=== PATIENT | male | born 1960 | race Caucasian/White ===

== ENCOUNTER 2019-10-15 16:39 | Emergency (ER) | payer BC, OTHER ==
[2019-10-15] MEDS ORDERED: oxyCODONE 5 MG Tab PO ONE (17:54)
--- NOTE | 2019-10-15 17:54 | EDM.PDOC ---
ED HPI GENERAL MEDICAL PROBLEM - General Chief Complaint: Back Pain or Injury Stated Complaint: PAIN RT SHOULDER/LOW BACK PAIN Time Seen by Provider: 10/15/19 17:15 - History of Present Illness INITIAL COMMENTS - FREE TEXT/NARRATIVE: This is a 59-year-old male presents with concerns of right-sided back and shoulder pain. 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 He had a fusion in his back for this. He reports that for the last week or so he is had increasing pain in his cervical spine, this radiates into his right shoulder and arm. He is noticed no weakness. He saw PCP a week ago, they prescribed him a steroid and some Flexeril, he did minimal relief with this. He called the PCPs office this evening to arrange follow-up and they suggested he go to the emergency room. He is not having any fevers or chills. He has no lower extremity weakness, bowel or bladder incontinence. No fevers. No IV drug use. No significant trauma preceding the symptoms. He is wondering about getting an MRI performed. Upper Back Pain Score (Numeric/FACES): 10 - Related Data Allergies Allergy/AdvReac Type Severity Reaction Status Date / Time Penicillins Allergy Fainting Verified 10/15/19 17:15 Home Meds: Home Meds Albuterol Sulfate [Albuterol Sulfate Hfa] 1 puff IH ASDIRECTED 10/15/19 [History] Losartan [Cozaar] 25 mg PO DAILY 10/15/19 [History] Omeprazole 40 mg PO ASDIRECTED 10/15/19 [History] Tamsulosin [Tamsulosin 24 Hr] 0.4 mg PO BID 10/15/19 [History] atorvaSTATin [Lipitor] 20 mg PO BEDTIME 10/15/19 [History] methylPREDNISolone [Methylprednisolone] 4 mg PO TID 10/15/19 [History] oxyCODONE 5 mg PO Q6H PRN #5 tab 10/15/19 [Rx] tiZANidine [Zanaflex] 2 mg PO DAILY 10/15/19 [History] Past Medical History HEENT History: Reports: Impaired Vision Cardiovascular History: Reports: High Cholesterol, Hypertension Respiratory History: Reports: Other (See Below) Gastrointestinal History: Reports: GERD Genitourinary History: Reports: Prostate Disorder Musculoskeletal History: Reports: Back Pain, Chronic Neurological History: Reports: Head Trauma, Other (See Below) Endocrine/Metabolic History: Reports: Diabetes, Type II, Obesity/BMI 30+ - Past Surgical History Head Surgeries/Procedures: Reports: None HEENT Surgical History: Reports: Adenoidectomy, Tonsillectomy Cardiovascular Surgical History: Reports: None Respiratory Surgical History: Reports: None GI Surgical History: Reports: None Endocrine Surgical History: Reports: None Neurological Surgical History: Reports: Spinal Fusion Musculoskeletal Surgical History: Reports: Other (See Below) Other Musculoskeletal Surgeries/Procedures:: knee surgery, Social & Family History - Tobacco Use Smoking Status *Q: Former Smoker Used Tobacco, but Quit: Yes Month/Year Tobacco Last Used: 2014 Second Hand Smoke Exposure: No - Caffeine Use Caffeine Use: Reports: Coffee - Recreational Drug Use Recreational Drug Use: No ED ROS GENERAL - Review of Systems Review Of Systems: See Below Constitutional: Reports: No Symptoms HEENT: Reports: No Symptoms Respiratory: Reports: No Symptoms Cardiovascular: Reports: No Symptoms Endocrine: Reports: No Symptoms GI/Abdominal: Reports: No Symptoms : Reports: No Symptoms Musculoskeletal: Reports: Back Pain Skin: Reports: No Symptoms Neurological: Reports: No Symptoms Psychiatric: Reports: No Symptoms Hematologic/Lymphatic: Reports: No Symptoms Immunologic: Reports: No Symptoms ED EXAM, UPPER BACK/NECK PAIN - Physical Exam Exam: See Below Exam Limited By: No Limitations General Appearance: Alert, Mild Distress Ears Exam: Normal External Exam Nose Exam: Normal Inspection Throat/Mouth Exam: Normal Inspection Head Exam: Atraumatic, Normocephalic Neck Exam: Tenderness (mild right sided neck and trapezious tenderness ) Cardiovascular/Respiratory: Regular Rate, Rhythm GI/Abdominal: Soft, Non-Tender Back Exam: Normal Inspection Extremities: Normal Inspection Neurologic: adobe layer helper II-XII nml As Tested, No Motor/Sensory Deficits, Normal Mood/Affect (Strategic Debriefing Specialist strength, flexion extension at the elbow, shoulder shrug is symmetric in the upper extremities bilaterally) Psychiatric: Normal Affect, Normal Mood Skin Exam: Normal Color, Warm/Dry Course - Vital Signs Last Recorded V/S: Last Vital Signs Temp 35.6 C L 10/15/19 17:20 Pulse 82 10/15/19 17:20 Resp 16 10/15/19 17:20 BP 135/96 H 10/15/19 17:20 Pulse Ox 98 10/15/19 17:20 - Orders/Labs/Meds Meds: Medications Discontinued Medications Generic Name Dose Route Start Last Admin Trade Name Dicksonq PRN Reason Stop Dose Admin Oxycodone HCl 5 mg 10/15/19 17:54 10/15/19 17:59 Oxycodone PO 10/15/19 17:55 5 mg ONETIME ONE Administration - Re-Assessments/Exams Free Text/Narrative Re-Assessment/Exam: 59-year-old male presents with concerns of right-sided cervical neck pain and arm pain. He has history of degenerative disease in the cervical spine. On exam he is neuro intact. He reports chronic pain in the neck, but quite a bit worse this last week. It is unclear what is driving this acute exacerbation of his chronic pain. However he has no motor deficit, signs of SEA, or other emergent pathology driving this. I think he is safe for further outpatient management, I prescribed him a short course of oxycodone. There seems to be a lot of muscle spasm driving this but he is already been prescribed Flexeril. He is going to follow-up promptly with his PCP tomorrow. They can consider MR managing and PT at this time. Discussed return precautions. Discharged. 10/15/19 18:35 Departure - Departure Time of Disposition: 17:53 Disposition: Home, Self-Care 01 Clinical Impression: Cervical pain (neck) - Discharge Information Prescriptions: oxyCODONE 5 mg PO Q6H PRN #5 tab PRN Reason: Pain Instructions: Radicular Pain Referrals: Olga Wilson MD [Primary Care Provider] - Forms: ED Department Discharge Additional Instructions: We did not findings that necessitate an MRI on your exam today, but you should follow up closely with your primary doctor as discussed. For pain, please continue to use tylenol. Use the prescription medication in addition to this as needed. If you develop weakness in the arm please promptly see a physician Thank you for allowing us to care for you today. Sepsis Event Note (ED) - Evaluation Sepsis Screening Result: No Definite Risk - Focused Exam Vital Signs: Vital Signs Temp Pulse Resp BP Pulse Ox 10/15/19 17:20 35.6 C L 82 16 135/96 H 98 10/15/19 17:05 35.6 C L 82 16 135/96 H 98
== END 2019-10-15 18:07 | disposition home or self-care (01) ==
LOC: JP.ED 16:39
DX: M54.2 Cervicalgia (principal); M25.511 Pain in right shoulder; M54.6 Pain in thoracic spine; I10 Essential (primary) hypertension; E78.00 Pure hypercholesterolemia, unspecified; E11.9 Type 2 diabetes mellitus without complications; E66.9 Obesity, unspecified; Z88.0 Allergy status to penicillin; Z79.899 Other long term (current) drug therapy; Z87.891 Personal history of nicotine dependence; Z68.32 Body mass index [BMI] 32.0-32.9, adult
CPT/HCPCS: 99283; A9270

== ENCOUNTER 2022-12-06 16:32 | Emergency (ER) | payer BC ==
[2022-12-06] MEDS ORDERED: Sodium Chloride 0.9% 10 ML Syringe FLUSH PRN (17:01)
[2022-12-06 17:13] LABS: BASOPHILS ABSOLUTE AUTO 0.05 K/uL (0.00-0.10); BASOPHILS PERCENT AUTO 0.6 % (0.1-1.3); EOSINOPHILS ABSOLUTE AUTO 0.01 K/uL (0.00-0.40); EOSINOPHILS PERCENT AUTO 0.1 % (0.0-5.4); HEMATOCRIT 44.5 % (38.4-49.7); IMMATURE GRAN ABSOLUTE AUTO 0.02 K/uL (0.00-0.23); IMMATURE GRAN PERCENT AUTO 0.2 % (0.0-0.7); LYMPHOCYTES ABSOLUTE AUTO 1.18 K/uL (0.8-3.3); LYMPHOCYTES PERCENT AUTO 13.3 % (11.4-47.7); MEAN CORPUSCULAR HEMOGLOBIN 30.7 pg (31.6-35.5); MEAN CORPUSCULAR HGB CONC 33.7 g/dL (31.6-35.5); MONOCYTES ABSOLUTE AUTO 0.79 K/uL (0.20-0.90); MONOCYTES PERCENT AUTO 8.9 % (3.3-12.6); NEUTROPHILS ABSOLUTE AUTO 6.84 K/uL (1.0-7.6); NEUTROPHILS PERCENT AUTO 76.9 % (40.0-78.1); PLATELET COUNT,PLT 221 K/uL (130-375); RED BLOOD CELL COUNT 4.89 M/uL (4.14-5.76); WHITE BLOOD CELL COUNT,WBC 8.9 K/uL (3.2-11.0)
[2022-12-06 17:18] LABS: PROTHROMBIN TIME 10.5 sec (9.2-10.6); PTT,PARTIAL THROMBOPLSTIN TIME 25.4 sec (21.8-27.3)
[2022-12-06 17:24] LABS: CREATININE 0.9 mg/dL (0.8-1.3); EST CRCL DRUG DOSING (CG) 85.1 mL/min; POTASSIUM,K 3.9 mmol/L (3.6-5.2); TROPONIN I HIGH SENSITIVITY 7.5 pg/mL (<=60.3)
[2022-12-06 17:26] LABS: ANION GAP 12.9 mmol/L (5.0-14.0)
[2022-12-06 17:32] LABS: MAGNESIUM 2.2 mg/dL (1.8-2.4); TSH ULTRASENSITIVE 0.581 uIU/mL (0.358-3.740)
[2022-12-06] MEDS ORDERED: Iopamidol 755 Mg/ML 100 ML Bottle IV SCH (18:30)
[2022-12-06] MEDS ORDERED: Sodium Chloride 0.9% 75 ML IV SCH (18:30)
== END 2022-12-06 19:19 | disposition home or self-care (01) ==
LOC: JP.ED 16:32
DX: R55 Syncope and collapse (principal); R07.89 Other chest pain; E78.5 Hyperlipidemia, unspecified; I10 Essential (primary) hypertension; E11.9 Type 2 diabetes mellitus without complications; E66.9 Obesity, unspecified; Z68.31 Body mass index [BMI] 31.0-31.9, adult; Z88.0 Allergy status to penicillin; Z79.899 Other long term (current) drug therapy
CPT/HCPCS: 36415; 71045; 71275; 80048; 83735; 84145; 84439; 84443; 84484; 85025; 85379; 85610; 85730; 93005; 99285; J3490; Q9967